=== PATIENT | female | born 1955 | race Caucasian/White ===

== ENCOUNTER → 2016-11-29 16:58 | Outpatient (CLI) | payer BC | END | disposition home or self-care (01) | LOC: D.MAMMO 08:15 | DX: Z12.31 Encounter for screening mammogram for malignant neoplasm of breast (principal) ==

== ENCOUNTER → 2017-01-02 09:57 | Outpatient (CLI) | payer BC | LOC: D.MAMMO 09:57 | DX: R92.8 Other abnormal and inconclusive findings on diagnostic imaging of breast (principal) ==